=== PATIENT | male | born 1955 | race Caucasian/White ===

== ENCOUNTER 2020-12-28 14:11 | Inpatient (IN) ==
[2020-12-28] MEDS ORDERED: Morphine Sulfate 2 MG/ML SYRINGE IVP ONE (15:10)
[2020-12-28 16:47] LABS: Basophils # 0.1 K/mcL (0.0-0.2); Basophils % 1.7 %; Eosinophils # 0.1 K/mcL (0.0-0.6); Hematocrit 47.1 % (37.5-50.1); Hemoglobin 14.8 g/dL (12.9-16.9); Immature Granulocytes % 0.4 % (0-4); Immature Platelets 9.2 % (1.1-6.1); Lymphocytes # 2.3 K/mcL (0.6-4.6); Lymphocytes % 33.2 %; Mean Corpuscular HGB Conc 31.4 g/dL (31.6-35.5); Mean Corpuscular Hemoglobin 30.1 pg (28.0-33.3); Mean Corpuscular Volume 95.7 fL (83.0-100.0); Mean Platelet Volume 11.6 fL (9.4-12.4); Monocytes # 0.7 K/mcL (0.0-1.3); Monocytes % 9.7 %; Neutrophils # 3.8 K/mcL (1.6-8.9); Platelet Count 121 K/mcL (140-400); Red Blood Count 4.92 M/mcL (4.19-5.50); Red Cell Distribution Width 13.8 % (11.5-14.5)
[2020-12-28 17:03] LABS: Albumin 3.3 g/dL (3.5-5.7); Albumin/Globulin Ratio 0.8 (1.1-2.2); Bilirubin,Direct 0.4 mg/dL (0.0-0.2); Bilirubin,Indirect 0.6 mg/dL (0.0-1.0); Globulin 3.9 g/dL (2.4-3.5); Total Protein 7.2 g/dL (6.4-8.9)
[2020-12-28 17:09] LABS: BUN/Creatinine Ratio 7 (6-26); Blood Urea Nitrogen 5 mg/dL (8-23); Calcium 8.5 mg/dL (8.6-10.3); Carbon Dioxide 30 mEq/L (23-29); Chloride 103 mEq/L (98-107); Glucose 74 mg/dL (70-105); Osmolality,Calculated 286 (280-300); Potassium 4.1 mEq/L (3.5-5.1); Sodium 140 mEq/L (136-145); Troponin I 0.03 ng/mL (< 0.04); eGFR For African Americans > 60 (> 60); eGFR For Non-African Americans > 60 (> 60)
[2020-12-28] MEDS ORDERED: Naloxone 0.4 MG/ML INJ IVP PRN (18:03)
[2020-12-28] MEDS ORDERED: Ondansetron 4 MG/2 ML VIAL IVP PRN (18:03)
[2020-12-28] MEDS ORDERED: Perflutren Lipid Microsphere 1.3 ML in 0.9 % Sodium Chloride 8.7 ML IVP PRN (18:05)
[2020-12-28] MEDS ORDERED: Magnesium Sulfate 1 GM/102 ML PIGGYBACK IVPB ONE (18:07)
[2020-12-28] MEDS ORDERED: *HR* Heparin 5,000 UNIT/ML VIAL IVP PRN (18:22)
[2020-12-28] MEDS ORDERED: *HR* Heparin 5,000 UNIT/ML VIAL IVP ONE (18:22)
[2020-12-28] MEDS: DilTIAZem 50 MG/50 ML IV.SOLN IVC SCH (18:25)
[2020-12-28] MEDS ORDERED: Ipratropium/Albuterol Neb 3 ML IH PRN (18:32)
[2020-12-28] MEDS ORDERED: Isovue-370 500 ML BOTTLE IVP ONE (18:36)
[2020-12-28] MEDS: Heparin 25,000UNIT/250ML 1/2NS 25,000 UNIT/250 ML IV.SOLN IVC SCH (18:53)
[2020-12-28 19:14] LABS: Heparin anti-factor XA UFH 0.14 IU/mL (0.30-0.70)
[2020-12-28 19:15] LABS: INR 1.4; Prothrombin Time 16.3 Seconds (9.4-12.1)
[2020-12-28] MEDS: Furosemide 20 MG/2 ML VIAL IVP SCH (23:03)
[2020-12-29 02:09] LABS: Basophils # 0.1 K/mcL (0.0-0.2); Basophils % 1.8 %; Eosinophils # 0.2 K/mcL (0.0-0.6); Eosinophils % 2.4 %; Hematocrit 47.8 % (37.5-50.1); Hemoglobin 15.3 g/dL (12.9-16.9); Immature Granulocytes % 0.4 % (0-4); Lymphocytes % 25.4 %; Mean Corpuscular Hemoglobin 30.1 pg (28.0-33.3); Mean Corpuscular Volume 93.9 fL (83.0-100.0); Mean Platelet Volume 11.3 fL (9.4-12.4); Monocytes # 0.8 K/mcL (0.0-1.3); Monocytes % 10.8 %; Neutrophils # 4.6 K/mcL (1.6-8.9); Platelet Count 144 K/mcL (140-400); Red Blood Count 5.09 M/mcL (4.19-5.50); Red Cell Distribution Width 13.7 % (11.5-14.5); Segmented Neutrophils % 59.2 %; White Blood Count 7.8 K/mcL (4.3-11.1)
[2020-12-29 02:26] LABS: Chol/HDL Ratio 5.3 (0-4.9)
[2020-12-29 02:27] LABS: BUN/Creatinine Ratio 9 (6-26); Blood Urea Nitrogen 8 mg/dL (8-23); Calcium 8.7 mg/dL (8.6-10.3); Carbon Dioxide 31 mEq/L (23-29); Chloride 101 mEq/L (98-107); Glucose 146 mg/dL (70-105); Magnesium 2.1 mg/dL (1.6-2.6); Osmolality,Calculated 287 (280-300); Phosphorous 3.6 mg/dL (2.7-4.5); Potassium 3.5 mEq/L (3.5-5.1); Sodium 138 mEq/L (136-145); eGFR For African Americans > 60 (> 60); eGFR For Non-African Americans > 60 (> 60)
[2020-12-29] MEDS: DilTIAZem 50 MG/50 ML IV.SOLN IVC SCH ×2 (06:23→15:10)
[2020-12-29] MEDS ORDERED: *HR* OxyCODONE/APAP 5/325 TABLET PO PRN (09:01)
[2020-12-29] MEDS ORDERED: Isosorbide MONOnitrate (24 HR) 60 MG TAB.ER.24H PO SCH (09:15)
[2020-12-29] MEDS: Metoprolol XL (24 HR) Succ 50 MG TAB.ER.24H PO SCH (09:34)
[2020-12-29] MEDS: Aspirin Enteric Coated 81 MG Tablet PO SCH (09:35)
[2020-12-29] MEDS: Furosemide 20 MG/2 ML VIAL IVP SCH ×2 (09:35→20:14)
[2020-12-29] MEDS: Budesonide/Formoterol 80/4.5 1 PUFF INH IH SCH ×2 (10:51→23:18)
[2020-12-29 13:29] LABS: Hepatitis B Surface Antigen Nonreactive (Nonreactive)
[2020-12-29 14:00] LABS: Hepatitis B Core IgM Nonreactive (Nonreactive); Hepatitis C Virus Antibody Nonreactive (Nonreactive)
[2020-12-29 14:01] LABS: Hepatitis A Antibody IgM Nonreactive (Nonreactive)
[2020-12-29] MEDS: Heparin 25,000UNIT/250ML 1/2NS 25,000 UNIT/250 ML IV.SOLN IVC SCH (15:10)
[2020-12-29 15:14] LABS: ABG Base Excess 7 mEq/L (-2 to 3); ABG HCO3 33 mEq/L (21-27); ABG Oxygen Saturation 91 % (95-98); ABG PCO2 51 mmHg (35-45); ABG PH 7.42 pH Units (7.32-7.45); ABG PO2 61 mmHg (85-104); ABG TCO2 35 mEq/L (20-26)
[2020-12-29] MEDS: Gabapentin 400 MG CAPSULE PO SCH ×2 (15:29→21:41)
[2020-12-29] MEDS: Levalbuterol Neb 1.25 MG/3 ML IH SCH ×2 (23:19→23:21)
[2020-12-30] MEDS: Levalbuterol Neb 1.25 MG/3 ML IH SCH ×4 (04:09→22:39)
[2020-12-30 06:22] LABS: Basophils # 0.1 K/mcL (0.0-0.2); Basophils % 1.4 %; Eosinophils # 0.2 K/mcL (0.0-0.6); Eosinophils % 2.8 %; Hemoglobin 14.9 g/dL (12.9-16.9); Immature Granulocytes % 0.5 % (0-4); Immature Platelets 6.6 % (1.1-6.1); Lymphocytes % 35.9 %; Mean Corpuscular Hemoglobin 30.2 pg (28.0-33.3); Mean Corpuscular Volume 97.2 fL (83.0-100.0); Mean Platelet Volume 11.3 fL (9.4-12.4); Monocytes % 11.3 %; Platelet Count 116 K/mcL (140-400); Red Blood Count 4.94 M/mcL (4.19-5.50); Red Cell Distribution Width 13.9 % (11.5-14.5); Segmented Neutrophils % 48.1 %; White Blood Count 8.4 K/mcL (4.3-11.1)
[2020-12-30 06:39] LABS: Estimated Average Glucose 143 mg/dl; Hemoglobin A1C 6.6 %
[2020-12-30 06:40] LABS: BUN/Creatinine Ratio 18 (6-26); Blood Urea Nitrogen 17 mg/dL (8-23); Calcium 9.2 mg/dL (8.6-10.3); Carbon Dioxide 30 mEq/L (23-29); Chloride 101 mEq/L (98-107); Glucose 112 mg/dL (70-105); Magnesium 2.1 mg/dL (1.6-2.6); Osmolality,Calculated 286 (280-300); Phosphorous 3.9 mg/dL (2.7-4.5); Sodium 137 mEq/L (136-145); eGFR For African Americans > 60 (> 60); eGFR For Non-African Americans > 60 (> 60)
[2020-12-30 06:43] LABS: Alanine Aminotransferase 70 Units/L (7-52); Albumin 3.3 g/dL (3.5-5.7); Albumin/Globulin Ratio 0.8 (1.1-2.2); Alkaline Phosphatase 58 Units/L (34-104); Aspartate Amino Transferase 58 Units/L (13-39); BUN/Creatinine Ratio 18 (6-26); Bilirubin,Total 0.8 mg/dL (0.3-1.0); Blood Urea Nitrogen 16 mg/dL (8-23); Calcium 9.1 mg/dL (8.6-10.3); Carbon Dioxide 30 mEq/L (23-29); Chloride 101 mEq/L (98-107); Globulin 4.1 g/dL (2.4-3.5); Glucose 112 mg/dL (70-105); Osmolality,Calculated 288 (280-300); Potassium 3.9 mEq/L (3.5-5.1); Sodium 138 mEq/L (136-145); Total Protein 7.4 g/dL (6.4-8.9); eGFR For African Americans > 60 (> 60); eGFR For Non-African Americans > 60 (> 60)
[2020-12-30] MEDS: Metoprolol XL (24 HR) Succ 50 MG TAB.ER.24H PO SCH ×3 (08:41→20:35)
[2020-12-30] MEDS: Gabapentin 400 MG CAPSULE PO SCH ×3 (08:41→20:35)
[2020-12-30] MEDS: Aspirin Enteric Coated 81 MG Tablet PO SCH (08:41)
[2020-12-30] MEDS: Furosemide 20 MG/2 ML VIAL IVP SCH ×2 (08:41→20:38)
[2020-12-30] MEDS ORDERED: *HR* Metoprolol 5 MG/5 ML VIAL IVP PRN (09:55)
[2020-12-30] MEDS: Isosorbide MONOnitrate (24 HR) 30 MG TAB.ER.24H PO SCH (09:57)
[2020-12-30] MEDS: Heparin 25,000UNIT/250ML 1/2NS 25,000 UNIT/250 ML IV.SOLN IVC SCH (09:57)
[2020-12-30] MEDS: Budesonide/Formoterol 80/4.5 1 PUFF INH IH SCH (11:13)
[2020-12-30] MEDS: Tiotropium 10 INH DOSE IH SCH (11:14)
[2020-12-30 15:19] LABS: Amphetamine Screen,Urine Negative ng/mL (Cutoff=1000); Barbiturate Screen,Urine Negative ng/mL (Cutoff=200); Benzodiazepines Screen,Urine Negative ng/mL (Cutoff=200); Cannabinoid Screen,Urine Negative ng/mL (Cutoff = 50); Cocaine Screen,Urine Negative ng/mL (Cutoff= 300); Opiate Screen,Urine Negative ng/mL (Cutoff=300); Phencyclidine Screen,Urine Negative ng/mL (Cutoff=25)
[2020-12-30] MEDS: lisinopriL 5 MG TABLET PO SCH (17:29)
[2020-12-30] MEDS: Budesonide/Formoterol 160/4.5 1 PUFF INH IH SCH (22:34)
[2020-12-31] MEDS: Levalbuterol Neb 1.25 MG/3 ML IH SCH ×4 (03:55→22:22)
[2020-12-31] MEDS: Heparin 25,000UNIT/250ML 1/2NS 25,000 UNIT/250 ML IV.SOLN IVC SCH ×2 (05:48→15:05)
[2020-12-31] MEDS: Aspirin Enteric Coated 81 MG Tablet PO SCH (08:29)
[2020-12-31] MEDS: Metoprolol XL (24 HR) Succ 50 MG TAB.ER.24H PO SCH ×2 (08:29→20:14)
[2020-12-31] MEDS: Gabapentin 400 MG CAPSULE PO SCH ×3 (08:29→20:23)
[2020-12-31] MEDS: Isosorbide MONOnitrate (24 HR) 30 MG TAB.ER.24H PO SCH (08:29)
[2020-12-31] MEDS: Furosemide 20 MG/2 ML VIAL IVP SCH ×2 (08:29→20:14)
[2020-12-31 09:39] LABS: Lymphocytes % 31.2 %; Red Cell Distribution Width 14.3 % (11.5-14.5)
[2020-12-31 09:41] LABS: Basophils # 0.2 K/mcL (0.0-0.2); Basophils % 1.7 %; Eosinophils # 0.2 K/mcL (0.0-0.6); Hematocrit 51.4 % (37.5-50.1); Immature Granulocytes % 0.3 % (0-4); Immature Platelets 8.1 % (1.1-6.1); Lymphocytes # 2.8 K/mcL (0.6-4.6); Mean Corpuscular HGB Conc 31.1 g/dL (31.6-35.5); Mean Corpuscular Hemoglobin 29.9 pg (28.0-33.3); Mean Corpuscular Volume 95.9 fL (83.0-100.0); Mean Platelet Volume 11.7 fL (9.4-12.4); Monocytes # 0.9 K/mcL (0.0-1.3); Monocytes % 9.9 %; Neutrophils # 4.9 K/mcL (1.6-8.9); Platelet Count 116 K/mcL (140-400); Red Blood Count 5.36 M/mcL (4.19-5.50); Segmented Neutrophils % 54.9 %
[2020-12-31 10:01] LABS: Albumin 3.8 g/dL (3.5-5.7); Albumin/Globulin Ratio 0.8 (1.1-2.2); BUN/Creatinine Ratio 24 (6-26); Bilirubin,Direct 0.2 mg/dL (0.0-0.2); Bilirubin,Indirect 0.6 mg/dL (0.0-1.0); Bilirubin,Total 0.8 mg/dL (0.3-1.0); Blood Urea Nitrogen 19 mg/dL (8-23); Calcium 9.8 mg/dL (8.6-10.3); Carbon Dioxide 29 mEq/L (23-29); Chloride 101 mEq/L (98-107); Globulin 4.7 g/dL (2.4-3.5); Glucose 121 mg/dL (70-105); Magnesium 2.1 mg/dL (1.6-2.6); Osmolality,Calculated 290 (280-300); Potassium 4.1 mEq/L (3.5-5.1); Sodium 138 mEq/L (136-145); Total Protein 8.5 g/dL (6.4-8.9); eGFR For African Americans > 60 (> 60); eGFR For Non-African Americans > 60 (> 60)
[2020-12-31] MEDS: Tiotropium 10 INH DOSE IH SCH (10:05)
[2020-12-31] MEDS: Budesonide/Formoterol 160/4.5 1 PUFF INH IH SCH ×2 (10:05→22:22)
[2020-12-31] MEDS: lisinopriL 5 MG TABLET PO SCH (17:37)
[2021-01-01] MEDS: Heparin 25,000UNIT/250ML 1/2NS 25,000 UNIT/250 ML IV.SOLN IVC SCH ×3 (01:11→22:40)
[2021-01-01 03:21] LABS: Basophils # 0.1 K/mcL (0.0-0.2); Basophils % 1.6 %; Eosinophils # 0.2 K/mcL (0.0-0.6); Eosinophils % 2.5 %; Hematocrit 46.9 % (37.5-50.1); Immature Granulocytes % 0.9 % (0-4); Lymphocytes # 2.7 K/mcL (0.6-4.6); Lymphocytes % 30.7 %; Mean Corpuscular HGB Conc 30.7 g/dL (31.6-35.5); Mean Corpuscular Volume 97.7 fL (83.0-100.0); Mean Platelet Volume 11.8 fL (9.4-12.4); Monocytes # 1.3 K/mcL (0.0-1.3); Monocytes % 14.2 %; Neutrophils # 4.5 K/mcL (1.6-8.9); Platelet Count 119 K/mcL (140-400); Segmented Neutrophils % 50.1 %; White Blood Count 8.9 K/mcL (4.3-11.1)
[2021-01-01] MEDS: Levalbuterol Neb 1.25 MG/3 ML IH SCH ×4 (03:25→21:24)
[2021-01-01 03:33] LABS: Hemoglobin 14.4 g/dL (12.9-16.9)
[2021-01-01 03:37] LABS: BUN/Creatinine Ratio 22 (6-26); Blood Urea Nitrogen 19 mg/dL (8-23); Calcium 9.2 mg/dL (8.6-10.3); Carbon Dioxide 35 mEq/L (23-29); Chloride 99 mEq/L (98-107); Glucose 124 mg/dL (70-105); Osmolality,Calculated 290 (280-300); Phosphorous 4.3 mg/dL (2.7-4.5); Potassium 3.8 mEq/L (3.5-5.1); Sodium 138 mEq/L (136-145); eGFR For African Americans > 60 (> 60); eGFR For Non-African Americans > 60 (> 60)
[2021-01-01] MEDS: Gabapentin 400 MG CAPSULE PO SCH ×3 (07:41→20:12)
[2021-01-01] MEDS: Aspirin Enteric Coated 81 MG Tablet PO SCH (07:41)
[2021-01-01] MEDS: Metoprolol XL (24 HR) Succ 50 MG TAB.ER.24H PO SCH ×2 (07:41→21:37)
[2021-01-01] MEDS: Furosemide 20 MG/2 ML VIAL IVP SCH ×2 (07:41→20:13)
[2021-01-01] MEDS: Isosorbide MONOnitrate (24 HR) 30 MG TAB.ER.24H PO SCH (07:41)
[2021-01-01] MEDS: Tiotropium 10 INH DOSE IH SCH (10:40)
[2021-01-01] MEDS: Budesonide/Formoterol 160/4.5 1 PUFF INH IH SCH ×2 (10:41→21:24)
[2021-01-01] MEDS ORDERED: *HR* Etomidate 40 MG/20 ML VIAL IVP ONE (11:44)
[2021-01-01] MEDS ORDERED: *HR* FentaNYL (PF) 100 MCG/2 ML VIAL ONE (11:45)
[2021-01-01] MEDS ORDERED: Lidocaine HCL 4 ML Topical Solution (Laryng-O-Jet Kit Sterile Pak) TP ONE (11:45)
[2021-01-01] MEDS ORDERED: Dexamethasone 4 MG/ML VIAL ONE (11:45)
[2021-01-01] MEDS ORDERED: Ondansetron 4 MG/2 ML VIAL ONE (11:45)
[2021-01-01] MEDS ORDERED: *HR* Rocuronium Bromide 50 MG/5 ML VIAL ONE (11:45)
[2021-01-01] MEDS ORDERED: Lidocaine -MPF 2% 2 ML VIAL ONE (11:45)
[2021-01-01] MEDS ORDERED: *HR* PHENYLEPHRINE 1,000 MCG/10 ML SYRINGE IVP ONE (11:48)
[2021-01-01 14:12] LABS: Adenovirus Not Detected (Not Detect); Bordetella Pertussis Not Detected (Not Detect); Chlamydophila pneumoniae Not Detected (Not Detect); Coronavirus 229E Not Detected (Not Detect); Coronavirus HKU1 Not Detected (Not Detect); Coronavirus NL63 Not Detected (Not Detect); Coronavirus OC43 Not Detected (Not Detect); Human Metapneumovirus Not Detected (Not Detect); Human Rhinovirus/Enterovirus Not Detected (Not Detect); Influenza A Subtype 2009 H1 Not Detected (Not Detect); Influenza B Not Detected (Not Detect); Mycoplasma pneumoniae Not Detected (Not Detect); Parainfluenza Virus 1 Not Detected (Not Detect); Parainfluenza Virus 2 Not Detected (Not Detect); Parainfluenza Virus 3 Not Detected (Not Detect); Parainfluenza Virus 4 Not Detected (Not Detect); Respiratory Syncytial Virus Not Detected (Not Detect); SARS-CoV-2 Not Detected (Not Detect)
[2021-01-01] MEDS ORDERED: *HR* Vasopressin 20 UNIT/ML VIAL ONE (16:43)
[2021-01-01] MEDS: lisinopriL 5 MG TABLET PO SCH (18:08)
[2021-01-02] MEDS: Levalbuterol Neb 1.25 MG/3 ML IH SCH ×4 (03:46→23:01)
[2021-01-02 06:33] LABS: Basophils # 0.1 K/mcL (0.0-0.2); Basophils % 0.6 %; Hematocrit 45.8 % (37.5-50.1); Hemoglobin 14.3 g/dL (12.9-16.9); Immature Granulocytes % 0.8 % (0-4); Lymphocytes # 1.6 K/mcL (0.6-4.6); Lymphocytes % 18.4 %; Mean Corpuscular HGB Conc 31.2 g/dL (31.6-35.5); Mean Corpuscular Hemoglobin 30.4 pg (28.0-33.3); Mean Corpuscular Volume 97.4 fL (83.0-100.0); Monocytes # 0.9 K/mcL (0.0-1.3); Monocytes % 10.3 %; Neutrophils # 5.9 K/mcL (1.6-8.9); Platelet Count 103 K/mcL (140-400); Red Cell Distribution Width 13.9 % (11.5-14.5); Segmented Neutrophils % 69.9 %; White Blood Count 8.4 K/mcL (4.3-11.1)
[2021-01-02 06:52] LABS: BUN/Creatinine Ratio 21 (6-26); Blood Urea Nitrogen 22 mg/dL (8-23); Calcium 9.5 mg/dL (8.6-10.3); Carbon Dioxide 34 mEq/L (23-29); Chloride 96 mEq/L (98-107); Glucose 271 mg/dL (70-105); Osmolality,Calculated 291 (280-300); Potassium 4.3 mEq/L (3.5-5.1); Sodium 134 mEq/L (136-145); eGFR For African Americans > 60 (> 60); eGFR For Non-African Americans > 60 (> 60)
[2021-01-02] MEDS: Metoprolol XL (24 HR) Succ 50 MG TAB.ER.24H PO SCH ×2 (07:36→19:41)
[2021-01-02] MEDS: Gabapentin 400 MG CAPSULE PO SCH ×3 (07:36→19:41)
[2021-01-02] MEDS: Aspirin Enteric Coated 81 MG Tablet PO SCH (07:36)
[2021-01-02] MEDS: Isosorbide MONOnitrate (24 HR) 30 MG TAB.ER.24H PO SCH (07:36)
[2021-01-02] MEDS: Furosemide 20 MG/2 ML VIAL IVP SCH (07:37)
[2021-01-02 08:44] LABS: Alanine Aminotransferase 69 Units/L (7-52); Albumin 3.5 g/dL (3.5-5.7); Albumin/Globulin Ratio 0.9 (1.1-2.2); Alkaline Phosphatase 46 Units/L (34-104); Aspartate Amino Transferase 77 Units/L (13-39); Bilirubin,Direct 0.3 mg/dL (0.0-0.2); Bilirubin,Indirect 0.6 mg/dL (0.0-1.0); Bilirubin,Total 0.9 mg/dL (0.3-1.0); Total Protein 7.5 g/dL (6.4-8.9)
[2021-01-02] MEDS: Tiotropium 10 INH DOSE IH SCH (10:07)
[2021-01-02] MEDS: Budesonide/Formoterol 160/4.5 1 PUFF INH IH SCH ×2 (10:08→23:01)
[2021-01-02] MEDS: lisinopriL 5 MG TABLET PO SCH (16:52)
[2021-01-02] MEDS: *HR* Heparin 5,000 UNIT/ML VIAL IVP PRN (19:59)
[2021-01-02] MEDS: Furosemide 40 MG/4 ML VIAL IVP SCH (20:00)
[2021-01-03 02:42] LABS: Basophils # 0.1 K/mcL (0.0-0.2); Eosinophils # 0.1 K/mcL (0.0-0.6); Eosinophils % 0.4 %; Hematocrit 45.6 % (37.5-50.1); Hemoglobin 14.3 g/dL (12.9-16.9); Immature Granulocytes % 0.8 % (0-4); Immature Platelets 10.1 % (1.1-6.1); Lymphocytes # 2.6 K/mcL (0.6-4.6); Lymphocytes % 22.9 %; Mean Corpuscular HGB Conc 31.4 g/dL (31.6-35.5); Mean Corpuscular Hemoglobin 30.6 pg (28.0-33.3); Mean Corpuscular Volume 97.6 fL (83.0-100.0); Mean Platelet Volume 11.4 fL (9.4-12.4); Monocytes # 1.2 K/mcL (0.0-1.3); Monocytes % 10.4 %; Neutrophils # 7.4 K/mcL (1.6-8.9); Platelet Count 107 K/mcL (140-400); Red Blood Count 4.67 M/mcL (4.19-5.50); Segmented Neutrophils % 64.5 %; White Blood Count 11.5 K/mcL (4.3-11.1)
[2021-01-03 02:51] LABS: BUN/Creatinine Ratio 26 (6-26); Blood Urea Nitrogen 22 mg/dL (8-23); Calcium 9.1 mg/dL (8.6-10.3); Carbon Dioxide 37 mEq/L (23-29); Chloride 97 mEq/L (98-107); Glucose 155 mg/dL (70-105); Osmolality,Calculated 288 (280-300); Potassium 3.8 mEq/L (3.5-5.1); Sodium 136 mEq/L (136-145); eGFR For African Americans > 60 (> 60); eGFR For Non-African Americans > 60 (> 60)
[2021-01-03] MEDS: Levalbuterol Neb 1.25 MG/3 ML IH SCH ×4 (03:59→23:27)
[2021-01-03] MEDS: Heparin 25,000UNIT/250ML 1/2NS 25,000 UNIT/250 ML IV.SOLN IVC SCH ×2 (04:02→16:06)
[2021-01-03] MEDS: Aspirin Enteric Coated 81 MG Tablet PO SCH (09:35)
[2021-01-03] MEDS: Gabapentin 400 MG CAPSULE PO SCH ×3 (09:35→20:29)
[2021-01-03] MEDS: Metoprolol XL (24 HR) Succ 50 MG TAB.ER.24H PO SCH ×2 (09:35→20:29)
[2021-01-03] MEDS: Isosorbide MONOnitrate (24 HR) 30 MG TAB.ER.24H PO SCH (09:35)
[2021-01-03] MEDS: Furosemide 40 MG/4 ML VIAL IVP SCH ×2 (09:35→20:29)
[2021-01-03] MEDS: *HR* Heparin 5,000 UNIT/ML VIAL IVP PRN (11:15)
[2021-01-03] MEDS: Tiotropium 10 INH DOSE IH SCH (11:44)
[2021-01-03] MEDS: Budesonide/Formoterol 160/4.5 1 PUFF INH IH SCH ×2 (11:44→23:27)
[2021-01-03] MEDS: lisinopriL 5 MG TABLET PO SCH (16:05)
[2021-01-04 02:31] LABS: Basophils # 0.1 K/mcL (0.0-0.2); Basophils % 1.8 %; Eosinophils # 0.2 K/mcL (0.0-0.6); Eosinophils % 2.3 %; Hematocrit 47.3 % (37.5-50.1); Immature Granulocytes % 0.6 % (0-4); Lymphocytes # 2.8 K/mcL (0.6-4.6); Lymphocytes % 35.7 %; Mean Corpuscular HGB Conc 31.7 g/dL (31.6-35.5); Mean Corpuscular Hemoglobin 31.1 pg (28.0-33.3); Mean Corpuscular Volume 97.9 fL (83.0-100.0); Mean Platelet Volume 11.9 fL (9.4-12.4); Monocytes # 1.1 K/mcL (0.0-1.3); Monocytes % 13.6 %; Neutrophils # 3.6 K/mcL (1.6-8.9); Platelet Count 106 K/mcL (140-400); Red Blood Count 4.83 M/mcL (4.19-5.50); Red Cell Distribution Width 14.2 % (11.5-14.5); White Blood Count 7.9 K/mcL (4.3-11.1)
[2021-01-04 02:48] LABS: BUN/Creatinine Ratio 28 (6-26); Blood Urea Nitrogen 27 mg/dL (8-23); Calcium 9.1 mg/dL (8.6-10.3); Carbon Dioxide 37 mEq/L (23-29); Chloride 91 mEq/L (98-107); Glucose 171 mg/dL (70-105); Osmolality,Calculated 291 (280-300); Potassium 3.8 mEq/L (3.5-5.1); Sodium 136 mEq/L (136-145); eGFR For African Americans > 60 (> 60); eGFR For Non-African Americans > 60 (> 60)
[2021-01-04] MEDS: Levalbuterol Neb 1.25 MG/3 ML IH SCH ×2 (04:07→11:06)
[2021-01-04] MEDS ORDERED: 0.9 % Sodium Chloride 250 ML IVC ONE (04:35)
[2021-01-04] MEDS ORDERED: *HR* Metoprolol 5 MG/5 ML VIAL IVP ONE (06:10)
[2021-01-04] MEDS: Isosorbide MONOnitrate (24 HR) 30 MG TAB.ER.24H PO SCH (09:07)
[2021-01-04] MEDS: Aspirin Enteric Coated 81 MG Tablet PO SCH (09:07)
[2021-01-04] MEDS: Furosemide 40 MG/4 ML VIAL IVP SCH (09:07)
[2021-01-04] MEDS: Gabapentin 400 MG CAPSULE PO SCH (09:07)
[2021-01-04] MEDS: Heparin 25,000UNIT/250ML 1/2NS 25,000 UNIT/250 ML IV.SOLN IVC SCH (09:08)
[2021-01-04] MEDS: Metoprolol XL (24 HR) Succ 50 MG TAB.ER.24H PO SCH (09:08)
[2021-01-04] MEDS: Tiotropium 10 INH DOSE IH SCH (11:07)
[2021-01-04] MEDS: Budesonide/Formoterol 160/4.5 1 PUFF INH IH SCH (11:11)
[2021-01-04] MEDS ORDERED: Amiodarone Premix 360 MG/200 ML BAG IVC ONE (12:15)
[2021-01-04] MEDS ORDERED: Amiodarone 300 MG in D5% in Water 100 ML IVPB ONE (12:16)
[2021-01-04 14:29] VITALS: BP 113/83
[2021-01-04] MEDS ORDERED: Amiodarone Premix 360 MG/200 ML BAG IVC SCH (18:16)
== END 2021-01-04 14:45 | disposition short-term general hospital (02) | DRG 308 ==
LOC: EMEROOARM 14:11 → 3BNU 14:11 → SUATTDRO 18:13 → 3BNU 22:12 → 2NNU 01-04 13:41
PROVIDERS: ADMIT Internal Medicine; ATTEND Internal Medicine